=== PATIENT | female | born 1995 | race American Indian/Alaskan Native ===

== ENCOUNTER 2017-06-20 14:37 | Emergency (ER) | payer OTHER ==
[2017-06-20 15:06] VITALS: BP 119/58
--- NOTE | 2017-06-20 15:57 | Emergency Department Report ---
ED Female HPI - General Chief complaint: Urogenital-Female Stated complaint: VAGINAL PROBLEMS, BURNING Time Seen by Provider: 06/20/17 15:57 Source: patient, family Mode of arrival: Ambulatory Limitations: No Limitations - History of Present Illness Initial comments: Patient he reported that she's having urinary burning and a white vaginal discharge that smells. She said this started one week ago. She denies any abdominal pain or back pain. Denies any nausea or vomiting. Denies any fever or chills. She said her last menstrual cycle was 3 weeks ago. Pain is 0/10. She had unprotected sex. She wants to be tested for STD. MD Complaint: vaginal discharge, dysuria, possible STD Onset/Timin -: week(s) Severity scale (0 -10): 0 Improves with: none Worsens with: none Are you Now?: No Last Menstrual Period: 06/06/17 EDC: 03/13/18 Associated Symptoms: vaginal discharge, dysuria. denies: vaginal bleeding, abdominal pain, nausea/vomiting, fever/chills, headaches, loss of appetite, hematuria, rash, seizure, shortness of breath, syncope, weakness - Related Data Sexually active: Yes Previous Rx's Medication Instructions Recorded Last Taken Type Nitrofurantoin Monohyd/M-Cryst 100 mg PO Q12H 7 Days #14 capsule 06/20/17 Unknown Rx [Macrobid 100 mg Capsule] metroNIDAZOLE [Flagyl] 500 mg PO Q12HR 7 Days #14 tab 06/20/17 Unknown Rx Allergies Allergy/AdvReac Type Severity Reaction Status Date / Time No Known Allergies Allergy Verified 06/20/17 15:01 ED Review of Systems ROS: Stated complaint: VAGINAL PROBLEMS, BURNING Other details as noted in HPI Comment: All other systems reviewed and negative Constitutional: no symptoms reported Eyes: denies: eye pain, vision change ENT: denies: ear pain, throat pain, epistaxis, congestion Respiratory: no symptoms reported Cardiovascular: denies: chest pain, palpitations, dyspnea on exertion, orthopnea , edema, syncope, paroxysmal nocturnal dyspnea Gastrointestinal: denies: abdominal pain, nausea, vomiting, diarrhea, constipation, hematemesis, melena Genitourinary: dysuria, discharge. denies: urgency, frequency, hematuria, abnormal menses, dyspareunia Musculoskeletal: denies: back pain, joint swelling, arthralgia, myalgia Skin: denies: rash Neurological: denies: headache, weakness, numbness, paresthesias, confusion, abnormal gait, vertigo ED Past Medical Hx - Past Medical History Previous Medical History?: No - Surgical History Past Surgical History?: No - Family History Family history: no significant - Social History Smoking Status: Never Smoker Substance Use Type: None - Medications Home Medications: Home Medications Medication Instructions Recorded Confirmed Last Taken Type Nitrofurantoin Monohyd/M-Cryst 100 mg PO Q12H 7 Days #14 capsule 06/20/17 Unknown Rx [Macrobid 100 mg Capsule] metroNIDAZOLE [Flagyl] 500 mg PO Q12HR 7 Days #14 tab 06/20/17 Unknown Rx ED Physical Exam - General Limitations: No Limitations General appearance: alert, in no apparent distress - Head Head exam: Present: atraumatic, normocephalic, normal inspection - Eye Eye exam: Present: normal appearance, PERRL, EOMI Pupils: Present: normal accommodation - ENT ENT exam: Present: normal exam, normal orophraynx, mucous membranes moist - Neck Neck exam: Present: normal inspection, full ROM, other (no C-spine tenderness). Absent: tenderness, meningismus, lymphadenopathy, thyromegaly - Respiratory Respiratory exam: Present: normal lung sounds bilaterally. Absent: respiratory distress, wheezes, chest wall tenderness, accessory muscle use - Cardiovascular Cardiovascular Exam: Present: regular rate, normal rhythm, normal heart sounds. Absent: systolic murmur, diastolic murmur - GI/Abdominal GI/Abdominal exam: Present: soft, normal bowel sounds. Absent: distended, tenderness, guarding, rebound, rigid, organomegaly, mass - External exam: Present: other (external vaginal malodorous discharge). Absent: normal external exam, erythema, swelling, lesions, lacerations, ecchymosis, bleeding Speculum exam: Present: vaginal discharge, cervical discharge. Absent: normal speculum exam, erythema, vaginal bleeding, foreign body, tissue, laceration Bi-manual exam: Present: normal bi-manual exam. Absent: cervical motion tendernes, adnexal tenderness, adnexal mass, uterine enlargement, uterine tenderness - Extremities Exam Extremities exam: Present: normal inspection, full ROM, normal capillary refill , other (no clubbing, cyanosis or edema to extremities. +2 pulses to all extremities. No neurovascular compromise). Absent: tenderness, pedal edema, joint swelling, calf tenderness - Back Exam Back exam: Present: normal inspection, full ROM, other (patient able to ambulate without any difficulties). Absent: tenderness, CVA tenderness (R), CVA tenderness (L), muscle spasm, paraspinal tenderness, vertebral tenderness, rash noted - Neurological Exam Neurological exam: Present: alert, oriented X3, normal gait - Psychiatric Psychiatric exam: Present: normal affect, normal mood - Skin Skin exam: Present: warm, dry, intact, normal color. Absent: rash ED Course Vital Signs 06/20/17 15:01 Temperature 98.1 F Pulse Rate 81 Respiratory 18 Rate Blood Pressure 119/58 O2 Sat by Pulse 99 Oximetry - Reevaluation(s) Reevaluation #1: 06/20/17 17:52 Patient wet prep positive for greater than 20% clue cells and trichomonas negative yeast is negative. Urinalysis positive for bacterial infection. I discussed the patient her urinalysis, test is negative. I also discussed with her that her vaginal swab was positive for bacterial vaginosis and negative for usage trichomonas. I also told her that gonorrhea and chlamydia tests will be back in 5 days. I gave her the option to be treated empirically for gonorrhea and chlamydia ordered to wait until results come back and she chose to be treated in emergency room. Given Rocephin 1 g IM to cover urinary tract infection and gonorrhea and a Zithromax and 1 g by mouth for chlamydia. No adverse reaction from medication. ED Medical Decision Making - Lab Data Lab Results 06/20/17 Range/Units 16:00 Urine Color Yellow (Yellow) Urine Turbidity Clear (Clear) Urine pH 5.0 (5.0-7.0) Ur Specific [place] 1.023 (1.003-1.030) Urine Protein <15 mg/dl (Negative) mg/dL Urine Glucose (UA) Neg (Negative) mg/dL Urine Ketones Neg (Negative) mg/dL Urine Blood Neg (Negative) Urine Nitrite Neg (Negative) Urine Bilirubin Neg (Negative) Urine Urobilinogen < 2.0 (<2.0) mg/dL Ur Leukocyte Esterase Mod (Negative) Urine WBC (Auto) 5.0 (0.0-6.0) /HPF Urine RBC (Auto) 5.0 (0.0-6.0) /HPF U Epithel Cells (Auto) 6.0 (0-13.0) /HPF Urine Bacteria (Auto) 4+ (Negative) /HPF Urine Mucus Few /HPF Urine is negative Urine culture sent and pending Gonorrhea and chlamydia tests pending results Wet Prep positive for greater than 20% clue cells, negative Trichomonas and negative yeast - Medical Decision Making [place]: Patient here report foul-smelling vaginal discharge and urinary burning 1 week. She reports possible exposure to STD but she is not sure. Patient urinalysis revealed that she has urinary tract infection and urine culture sent and pending. Wet prep revealed positive bacterial vaginosis, negative yeast and Trichomonas. Gonorrhea and chlamydia sent and pending. Patient given option of being treated for gonorrhea and chlamydia today or to wait until her tests returned. She chose to be treated. Patient's given azithromycin 1 g by mouth twice a day and Rocephin 1 g IM to cover gonorrhea and UTI. I discussed her diagnosis, treatment plan and follow-up visit and she voiced understanding. She does have a primary care physician. Patient discharged home with prescription for Macrobid and Flagyl. I discussed with her that she needs to refrain from having unsafe sex and that she needs to report that she was treated for sexually transmitted disease in the emergency room to her partner. Critical care attestation.: If time is entered above; I have spent that time in minutes in the direct care of this critically ill patient, excluding procedure time. ED Disposition Clinical Impression: Acute cystitis without hematuria, Dysuria, Bacterial vaginosis, Concern about STD in female without diagnosis Disposition: DC-01 TO HOME OR SELFCARE Is pt being admited?: No Does the pt Need Aspirin: No Condition: Stable Instructions: Bacterial Vaginosis (ED), Safe Sex (ED), Urinary Tract Infection in Women (ED), Dysuria (ED), Sexually Transmitted Diseases (ED) Additional Instructions: Please refrain from having sexual activity for the next 2 weeks. Follow-up with your primary care physician in 2 days Follow up with [facility] in 7-10 days for repeat STD check You were treated today gonorrhea and chlamydia tests will be back in 5-7 days. Practice safe sex do not drink alcohol while taking Flagyl for bacterial vaginosis as this medication can cause negative interaction with alcohol Tell partnerthat you're treated for STD and hospital today. increase her fluid intake Take medication as prescribed. Prescriptions: metroNIDAZOLE [Flagyl] 500 mg PO Q12HR 7 Days #14 tab Nitrofurantoin Monohyd/M-Cryst [Macrobid 100 mg Capsule] 100 mg PO Q12H 7 Days # 14 capsule Referrals: PRIMARY CARE, [Primary Care Provider] - 06/23/17 [facility] [Outside] - 7-10 days Forms: STI Treatment and Prevention, Work/School Release Form(ED)
[2017-06-20 16:19] LABS: Bacteria,Urine 4+ /HPF (Negative); Bilirubin,Urine NEG (Negative); Blood,Urine NEG (Negative); Ketones,Urine NEG (Negative); Leukocyte Esterase,Urine MOD (Negative); Mucus,Urine FEW /HPF; Nitrite,Urine NEG (Negative); Protein,Urine <15 mg/dL mg/dL (Negative); Urobilinogen,Urine < 2.0 mg/dL (<2.0)
[2017-06-20] MEDS ORDERED: ROCEPHIN IM STA (17:24)
[2017-06-20] MEDS ORDERED: XYLOCAINE 1% MPF 5 mL INFILTRATI ONE (17:25)
== END 2017-06-20 18:22 | disposition home or self-care (01) ==
LOC: ED 14:37
DX: N30.00 Acute cystitis without hematuria (principal); N76.0 Acute vaginitis
CPT/HCPCS: 81001; 81025; 87086; 87210; 87591; 96372; 99284; J0696

== ENCOUNTER 2018-08-14 19:01 | Emergency (ER) | payer OTHER ==
[2018-08-14] MEDS ORDERED: BENADRYL PO ONE (20:47)
--- NOTE | 2018-08-14 21:11 | Emergency Department Report ---
ED Rash HPI - HPI Chief Complaint: Skin Rash Stated Complaint: POSS BED BUGS Time Seen by Provider: 08/14/18 20:45 Duration: Today Location: Neck, Chest, Upper Extremities, Lower Extremities Rash Symptoms: Yes Itching, No Facial Swelling, No Tongue/Oral Swelling, No Breathing Difficulties, No Choking Sensation, No Wheezing/Dyspnea, No Peeling, No Blistering, No Fever, No Lightheaded, No Malaise, No Myalgias Severity: moderate ED Review of Systems ROS: Stated complaint: POSS BED BUGS Other details as noted in HPI Constitutional: denies: chills, fever Eyes: denies: eye pain, eye discharge, vision change ENT: denies: ear pain, throat pain Respiratory: denies: cough, shortness of breath, wheezing Cardiovascular: denies: chest pain, palpitations Endocrine: no symptoms reported Gastrointestinal: denies: abdominal pain, nausea, diarrhea Genitourinary: denies: urgency, dysuria, discharge Musculoskeletal: denies: back pain, joint swelling, arthralgia Skin: rash (eythema raised pitechia no fever no wheeping ) ED Past Medical Hx - Past Medical History Previous Medical History?: No - Surgical History Past Surgical History?: No - Social History Smoking Status: Never Smoker Substance Use Type: None - Medications Home Medications: Home Medications Medication Instructions Recorded Confirmed Last Taken Type Nitrofurantoin Monohyd/M-Cryst 100 mg PO Q12H 7 Days #14 capsule 06/20/17 Unknown Rx [Macrobid 100 mg Capsule] metroNIDAZOLE [Flagyl] 500 mg PO Q12HR 7 Days #14 tab 06/20/17 Unknown Rx Permethrin 5% [Acticin 5% CREAM] 1 applicatio TP ONCE #1 tube 08/14/18 Unknown Rx Triamcinolone Aceton 0.1% (Nf) 1 applic TP BID 14 Days #1 tube 08/14/18 Unknown Rx [Kenalog (NF)] diphenhydrAMINE [Benadryl CAP] 25 mg PO Q6HR PRN #30 capsule 08/14/18 Unknown Rx Rash Exam - Exam General: Vital signs noted. No distress. Alert and acting appropriately. HEENT: No Periorbital Edema, No Conjuctival Injection, No Chemosis, No Perioral Edema, No Tongue Edema, No Uvular Edema, No Compromised Airway, No Drooling Lungs: Yes Good Air Exchange (Normal Breath Sounds), No Wheezes, No Ronchi, No Stridor, No Cough, No Labored Respirations, No Retractions, No Use of Accessory Muscles, No Other Abnormal Lung Sounds Heart: Yes Regular, No Murmur Skin: Yes Urticarial Rash, Yes Excoriations, Yes Erythema, No Maculopapular Rash, No Morbilliform rash, No Bulla(e), No Weeping, No Tenderness, No Edema, No Encrustations, No Other Other: Positive: Abdomen Normal, Neurologic Normal, Musculoskeletal Normal ED Course Vital Signs 08/14/18 19:16 Temperature 98.2 F Pulse Rate 85 Respiratory 16 Rate Blood Pressure 111/65 O2 Sat by Pulse 99 Oximetry ED Medical Decision Making - Medical Decision Making this is scabies versus bedbugs contact dermatitis, plan: permethrine, triamcinolone, benadryl, pt given in structions for home mattress linen and clothing, pt verbalized agreement and understanding of same pt for dc to home in stable condition at this time. Critical care attestation.: If time is entered above; I have spent that time in minutes in the direct care of this critically ill patient, excluding procedure time. ED Disposition Clinical Impression: Scabies exposure Bedbug bite Qualifiers: Encounter type: initial encounter Qualified Code(s): W57.XXXA - Bitten or stung by nonvenomous insect and other nonvenomous arthropods, initial encounter Disposition: DC-01 TO HOME OR SELFCARE Is pt being admited?: No Does the pt Need Aspirin: No Condition: Stable Instructions: Scabies (ED), Contact Dermatitis (ED) Prescriptions: diphenhydrAMINE [Benadryl CAP] 25 mg PO Q6HR PRN #30 capsule PRN Reason: Itching Permethrin 5% [Acticin 5% CREAM] 1 applicatio TP ONCE #1 tube Triamcinolone Aceton 0.1% (Nf) [Kenalog (NF)] 1 applic TP BID 14 Days #1 tube Referrals: LORENA DORANTES MD [Primary Care Provider] - 3-5 Days Forms: Work/School Release Form(ED) Time of Disposition: 21:19
[2018-08-16 12:46] VITALS: BP 111/65
== END 2018-08-14 21:31 | disposition home or self-care (01) ==
LOC: ED 19:01
DX: S10.96XA Insect bite of unspecified part of neck, initial encounter (principal); S20.369A Insect bite (nonvenomous) of unspecified front wall of thorax, initial encounter; S60.562A Insect bite (nonvenomous) of left hand, initial encounter; S60.561A Insect bite (nonvenomous) of right hand, initial encounter; S80.862A Insect bite (nonvenomous), left lower leg, initial encounter; S80.861A Insect bite (nonvenomous), right lower leg, initial encounter; B86 Scabies; W57.XXXA Bitten or stung by nonvenomous insect and other nonvenomous arthropods, initial encounter; Y93.89 Activity, other specified; Y92.89 Other specified places as the place of occurrence of the external cause; Y99.8 Other external cause status
CPT/HCPCS: 99282